=== PATIENT | female | born 1945 | race Caucasian/White ===

== ENCOUNTER 2019-02-19 11:32 | Outpatient (CLI) | payer OTHER ==
[~2019-02-19 11:32] MED LIST: AMOX1TAB12 PO; INTESTINEX680 MG PO; KEFLEX500 MG PO; KETO10TA2 PO; SINGULAIR10 MG; ZIOPTAN 0.00151 EACH
== END 2019-02-19 11:49 | disposition home or self-care (01) ==
LOC: NUCLEAR 11:32
DX: R00.1 Bradycardia, unspecified (principal); R42 Dizziness and giddiness; G47.30 Sleep apnea, unspecified; I65.29 Occlusion and stenosis of unspecified carotid artery

== ENCOUNTER 2022-04-19 14:25 | Outpatient (CLI) | payer OTHER | END 2022-04-19 14:31 | disposition home or self-care (01) | LOC: RAD 14:25 | PROVIDERS: ATTEND Physical Medicine & Rehabilitation | DX: M54.12 Radiculopathy, cervical region (principal) ==

== ENCOUNTER 2024-09-16 13:46 | Emergency (ER) | payer OTHER ==
[~2024-09-16] VITALS: Ht 149.9 cm; Wt 60.8 kg
[2024-09-16] MEDS ORDERED: KETOROLAC TROMETHAMINE 60 MG VIAL IM STA (14:30)
[2024-09-16] MEDS ORDERED: KETOROLAC TROMETHAMINE 60 MG VIAL IM ONE (14:33)
== END 2024-09-16 16:06 | disposition home or self-care (01) ==
LOC: ER 13:46
DX: M25.561 Pain in right knee (principal); Z88.2 Allergy status to sulfonamides; E78.00 Pure hypercholesterolemia, unspecified; M85.88 Other specified disorders of bone density and structure, other site
CPT/HCPCS: 73560; 96372; 99283; J1885